=== PATIENT | female | born 1970 | race Caucasian/White ===

== ENCOUNTER 2017-09-14 15:37 | Emergency (ER) | payer MEDICARE, MEDICAID ==
[~2017-09-14] VITALS: Ht 160 cm; Wt 80.4 kg
[~2017-09-14 15:37] MED LIST: ANTIVERT25 MG PO; ARTHRITIS MED; ASPIRIN EC81 M1; AUGMENTIN 875875 MG PO; BP MEDICATION; BUSPAR15 MG; CEFDINIR300 MG; CLONAZEPAM 0.50.5 M1 PO; ESTRACE1 MG; FLEXERIL PO; HYDROCODONE-AP1 EAC6 PO; IBUPROFEN 200200 M1; IBUPROFEN 800800 MG PO; LEVOTHROID88 MCG; LIORESAL 10 MG10 MG PO; MEDROLDOSEPACK PO; MIRALAX17 GM PO; NAPROSYN375 MG PO; NORCO 5-325 TA1 EACH PO; PRILOSEC 20 MG20 MG; PRISTIQ50 M1; PROTONIX40 M1 PO; SYNTHROID50 MCG PO; TRENTAL400 MG; ULTRAM 50MG TAB50 MG PO; ZOFRAN ODT4 MG DISSOLVE; ZOFRAN ODT4 MG PO; [UNRECOGNIZED DRUG - OTHER]
[2017-09-14] MEDS ORDERED: CLONAZEPAM 1 MG1 M1 PO (15:48)
[2017-09-14] MEDS ORDERED: ZANTAC 150MG T150 MG PO (15:48)
[2017-09-14 15:53] LABS: ABSOLUTE EOSINOPHILS 0.1 thou/uL (0.0-0.7); ABSOLUTE LYMPHOCYTES 2.2 thou/uL (0.8-5.3); ABSOLUTE MONOCYTES 0.4 thou/uL (0.0-1.2); ABSOLUTE NEUTROPHILS 5.7 thou/uL (1.6-8.1); BASOPHILS 0.5 %; EOSINOPHILS 1.7 %; HEMATOCRIT 39.5 % (37.0-47.0); HEMOGLOBIN 13.4 gm/dL (12.0-15.0); LYMPHOCYTES 26.3 %; MCH 30.6 pg (26.0-34.0); MONOCYTES 5.2 %; MPV 8.7 fl. (7.2-11.1); NUCLEATED RBCS 0 /100WBC; PLATELET COUNT* 302 thou/uL (150-400); POLYS 66.3 %; RBC 4.38 mil/uL (4.20-5.00); RDW-CV 14.1 % (10.5-14.5); WBC 8.6 thou/uL (4.0-11.0)
[2017-09-14 15:57] LABS: URINE BILIRUBIN NEGATIVE (Negative); URINE BLOOD NEGATIVE (Negative); URINE CLARITY CLEAR; URINE COLOR YELLOW; URINE GLUCOSE-RANDOM NEGATIVE (Negative); URINE KETONES TRACE (Negative); URINE LEUKOCYTES-REFLEX NEGATIVE (Negative); URINE NITRITE-REFLEX NEGATIVE (Negative); URINE PROTEIN NEGATIVE (Negative); URINE SPECIFIC GRAVITY >= 1.030 (1.005-1.030); URINE UROBILINOGEN 0.2 E.U./dl (0.2-1.0)
[2017-09-14 16:02] LABS: CALCIUM 9.8 mg/dL (8.5-10.1); CREATININE 0.7 mg/dL (0.6-1.3); POTASSIUM 3.7 mmol/L (3.5-5.1)
[2017-09-14 16:07] LABS: ALBUMIN 3.9 g/dL (3.4-5.0); TOTAL BILIRUBIN 0.3 mg/dL (<0.1-1.0); TOTAL PROTEIN 7.6 g/dL (6.4-8.2)
[2017-09-14 17:46] VITALS: BP 112/52
== END 2017-09-14 17:47 | disposition home or self-care (01) ==
LOC: M.ERS 15:37
PROVIDERS: Nurse Practitioner Family
DX: K59.00 Constipation, unspecified (principal); K44.9 Diaphragmatic hernia without obstruction or gangrene; M79.7 Fibromyalgia; E03.9 Hypothyroidism, unspecified; F41.9 Anxiety disorder, unspecified; Z88.5 Allergy status to narcotic agent; Z88.2 Allergy status to sulfonamides; Z87.891 Personal history of nicotine dependence; Z85.43 Personal history of malignant neoplasm of ovary

== ENCOUNTER 2018-03-21 15:30 | Emergency (ER) | payer MEDICARE, MEDICAID ==
[~2018-03-21] VITALS: Ht 175.3 cm; Wt 87.6 kg
[~2018-03-21 15:30] MED LIST changes: +CLONAZEPAM 1 MG1 M1 PO; +ZANTAC 150MG T150 MG PO
[2018-03-21 15:55] LABS: ABSOLUTE EOSINOPHILS 0.1 thou/uL (0.0-0.7); ABSOLUTE LYMPHOCYTES 1.8 thou/uL (0.8-5.3); ABSOLUTE MONOCYTES 0.5 thou/uL (0.0-1.2); ABSOLUTE NEUTROPHILS 4.9 thou/uL (1.6-8.1); BASOPHILS 0.5 %; EOSINOPHILS 1.7 %; HEMATOCRIT 37.6 % (37.0-47.0); HEMOGLOBIN 12.5 gm/dL (12.0-15.0); LYMPHOCYTES 24.4 %; MCH 29.7 pg (26.0-34.0); MCHC 33.2 g/dL (28.0-37.0); MCV 89.3 fL (80.0-100.0); MONOCYTES 7.3 %; NUCLEATED RBCS 0 /100WBC; PLATELET COUNT* 266 thou/uL (150-400); POLYS 66.1 %; RBC 4.21 mil/uL (4.20-5.00); RDW-CV 13.3 % (10.5-14.5); WBC 7.5 thou/uL (4.0-11.0)
[2018-03-21 16:05] LABS: ANION GAP 7 mmol/L (7-16); BUN 17 mg/dL (7-18); CALCIUM 8.5 mg/dL (8.5-10.1); CHLORIDE 105 mmol/L (98-107); CO2 28 mmol/L (21-32); CREATININE 0.6 mg/dL (0.6-1.3); GLUCOSE 78 mg/dL (70-99); POTASSIUM 3.8 mmol/L (3.5-5.1); SODIUM 140 mmol/L (136-145)
[2018-03-21 16:08] LABS: APTT 27.3 Seconds (25.0-31.3); PROTIME 10.5 Seconds (9.20-11.50)
[2018-03-21 16:24] LABS: ALBUMIN 3.4 g/dL (3.4-5.0); ALKALINE PHOSPHATASE 43 U/L (46-116); CK-MB MASS 1.9 ng/mL (<0.5-3.6); LIPASE 209 U/L (73-393); MAGNESIUM 1.7 mg/dL (1.8-2.4); NT-PRO BRAIN NAT PEPTIDE 33 pg/mL (<300); SGOT 21 U/L (15-37); SGPT 33 U/L (30-65); TOTAL BILIRUBIN 0.2 mg/dL (<0.1-1.0); TOTAL PROTEIN 6.8 g/dL (6.4-8.2); TROPONIN-I LEVEL <0.06 ng/mL (<0.06)
[2018-03-21 16:34] VITALS: BP 116/68
--- NOTE | 2018-03-21 16:51 | EKG ---
[place] [address] ELECTROCARDIOGRAM REPORT Name: LATOYA PASCAL Room: [facility]#: [id number] Admission: 03/21/18 Attend Phys: Discharge: 03/21/18 Date of : 70 Report #: [id number] THIS REPORT FOR: //name// [facility] ED Test Date: 2018-03-21 Test Time: 15:35:57 Pat Name: LATOYA BARRYNKLE Department: Room: Gender: F Family Protection Specialist: MARIELENA : 1970 Requested By: Manny Aranda Order Number: [id number] MD: Robin Zhao Measurements Intervals [place] Rate: 68 P: -1 NC: 106 QRS: -5 QRSD: 98 T: 32 QT: 407 QTc: 433 Interpretive Statements Sinus rhythm Short NC interval Compared to ECG 07/09/2016 18:43:43 No significant changes Electronically Signed On 03-21-2018 16:51:27 RN [facility] by Robin Zhao [email or web address] <ELECTRONICALLY SIGNED> By: Robin Zhao MD, [facility] 03/21/18 1651 1535 34 Robin Zhao MD, FACC /EPI
== END 2018-03-21 16:44 | disposition home or self-care (01) ==
LOC: M.ERS 15:30
PROVIDERS: Family Medicine
DX: R07.89 Other chest pain (principal); M79.7 Fibromyalgia; E03.9 Hypothyroidism, unspecified; F41.9 Anxiety disorder, unspecified; I73.00 Raynaud's syndrome without gangrene; F17.210 Nicotine dependence, cigarettes, uncomplicated; Z88.2 Allergy status to sulfonamides; Z88.5 Allergy status to narcotic agent

== ENCOUNTER 2019-02-17 14:32 | Emergency (ER) | payer MEDICARE, MEDICAID ==
[~2019-02-17] VITALS: Ht 170.2 cm; Wt 77.1 kg
[2019-02-17] MEDS ORDERED: CLONAZEPAM 0.50.5 M1 PO (14:40)
[2019-02-17 15:22] LABS: ABSOLUTE LYMPHOCYTES 0.7 thou/uL (0.8-5.3); ABSOLUTE MONOCYTES 0.2 thou/uL (0.0-1.2); ABSOLUTE NEUTROPHILS 2.8 thou/uL (1.6-8.1); BASOPHILS 0.4 %; HEMATOCRIT 39.4 % (37.0-47.0); HEMOGLOBIN 13.6 gm/dL (12.0-15.0); LYMPHOCYTES 19.3 %; MCHC 34.4 g/dL (28.0-37.0); MCV 87.2 fL (80.0-100.0); MONOCYTES 5.8 %; MPV 8.3 fl. (7.2-11.1); NUCLEATED RBCS 0 /100WBC; PLATELET COUNT* 183 thou/uL (150-400); POLYS 74.5 %; RBC 4.52 mil/uL (4.20-5.00); RDW-CV 13.9 % (10.5-14.5); WBC 3.8 thou/uL (4.0-11.0)
[2019-02-17 15:25] LABS: INFLUENZA A ANTIGEN Negative (Negative); INFLUENZA B ANTIGEN Negative (Negative)
[2019-02-17 15:33] LABS: CALCIUM 9.2 mg/dL (8.5-10.1); CREATININE 0.6 mg/dL (0.6-1.3); POTASSIUM 4.2 mmol/L (3.5-5.1)
[2019-02-17 15:41] LABS: ALBUMIN 3.3 g/dL (3.4-5.0); MAGNESIUM 1.7 mg/dL (1.8-2.4); TOTAL BILIRUBIN 0.3 mg/dL (<0.1-1.0); TOTAL PROTEIN 6.9 g/dL (6.4-8.2)
[2019-02-17 15:58] LABS: URINE BILIRUBIN NEGATIVE (Negative); URINE BLOOD TRACE (Negative); URINE CLARITY CLEAR; URINE COLOR YELLOW; URINE GLUCOSE-RANDOM NEGATIVE (Negative); URINE KETONES 1+ (Negative); URINE LEUKOCYTES-REFLEX NEGATIVE (Negative); URINE NITRITE-REFLEX NEGATIVE (Negative); URINE PROTEIN TRACE (Negative); URINE SPECIFIC GRAVITY 1.025 (1.005-1.030); URINE UROBILINOGEN 0.2 E.U./dl (0.2-1.0)
[2019-02-17 16:14] VITALS: BP 113/62
--- NOTE | 2019-02-19 16:22 | EKG ---
[place] [address] ELECTROCARDIOGRAM REPORT Name: LATOYA PASCAL Room: [facility]#: [id number] Admission: 02/17/19 Attend Phys: Discharge: 02/17/19 Date of : 70 Report #: [id number] THIS REPORT FOR: //name// [facility] ED Test Date: 2019-02-17 Test Time: 14:43:31 Pat Name: LATOYA BARRYNKLE Department: Room: Gender: F Photographic Artist: DENI : 1970 Requested By: Scott Veliz Order Number: [id number] MD: Celso Leggett Measurements Intervals [place] Rate: 61 P: -15 UT: 124 QRS: -5 QRSD: 100 T: 43 QT: 440 QTc: 444 Interpretive Statements Sinus rhythm Baseline wander in lead(s) V1 Compared to ECG 03/21/2018 15:35:57 no change Electronically Signed On 02-19-2019 16:22:46 CDT by Celso Leggett [email or web address] <ELECTRONICALLY SIGNED> By: Celso Leggett MD, [facility] 02/19/19 1622 1443 1443 Celso Leggett MD, FACC /EPI
== END 2019-02-17 16:15 | disposition home or self-care (01) ==
LOC: M.ERS 14:32
PROVIDERS: Emergency Medicine Emergency Medical Services
DX: G43.909 Migraine, unspecified, not intractable, without status migrainosus (principal); B34.9 Viral infection, unspecified; M79.7 Fibromyalgia; E03.9 Hypothyroidism, unspecified; F41.9 Anxiety disorder, unspecified; Z90.710 Acquired absence of both cervix and uterus; Z88.5 Allergy status to narcotic agent; Z90.49 Acquired absence of other specified parts of digestive tract; Z88.2 Allergy status to sulfonamides